=== PATIENT | female | born 1995 | race Caucasian/White ===

== ENCOUNTER 2017-08-23 02:40 | Emergency (ER) | payer BC ==
[~2017-08-23] VITALS: Ht 180.3 cm; Wt 85.0 kg
[2017-08-23 02:58] VITALS: BP 136/68; PULSE 68; RESP 18; TEMP 97.8; O2SAT 99
[2017-08-23] MEDS ORDERED: ONDANSETRON HCL 4 MG/2 ML VIAL IV ONE (03:30)
[2017-08-23] MEDS ORDERED: SODIUM CHLOR 0.9% 1000 ML INJ 1,000 ML IV ONE ×2 (03:30→04:30)
--- NOTE | 2017-08-23 03:37 | PD ---
HPI Chief Complaint: Alcohol/Drug Intoxication Time Seen by Provider: 03:20 Travel History International Travel<30 days: No Contact w/Intl Traveler<30days: No Traveled to known affect area: No History of Present Illness HPI The patient is a 22 year old female who presents to the [facility] emergency department with a history of nausea that began at midnight. The patient reports that she last ate a meal at lunchtime. She reports that she has been drinking alcohol this evening since approximately 6 PM. She reports that in total she drank 2 mixed drinks and 3-6 shots of vodka. She reports feeling weak, thirsty, and having a dry mouth. She reports that her boyfriend was recently sick with a diarrheal illness. She reports that she has had vomiting too many times to count and diarrhea approximately 3 times. She reports that the stool is dark brown. The patient reports having midepigastric abdominal discomfort associated with this. She denies having any recent fevers or chills, cough or congestion, neck pain, chest pain, shortness of breath, urinary symptoms, or other neurologic symptoms. LMP: Started today. She is on an oral contraceptive [facility] Past Medical History Narrative Medical The patient's past medical history is reportedly significant for mild asthma Asthma: Yes Immunizations Current: Yes Tetanus Vaccination: Unknown Influenza Vaccination: No ?: Unknown LMP: 08/23/17 Past Surgical History Narrative Surgical The patient's past surgical history is reportedly none. Social History Alcohol Use: Yes Tobacco Use: No Substance Use: No Allergies-Medications (Allergen,Severity, Reaction): Coded Allergies: ibuprofen (Verified Allergy, Severe, hives, 08/23/17) Narrative Medication Oral contraceptive Review of Systems Except as stated in HPI: all other systems reviewed are Neg General / Constitutional: No: Fever Eyes: No: Visual changes HENT: No: Headaches Cardiovascular: No: Chest Pain or Discomfort Respiratory: No: Shortness of Breath Gastrointestinal: Positive: Nausea, Vomiting, Diarrhea, Abdominal Pain, Changes in Bowel Habits, No: Indigestion, Loss of Appetite Genitourinary: No: Dysuria Musculoskeletal: No: Myalgias, Pain Skin: No Rash Neurologic: Positive: Weakness (Generalized weakness), No: Focal Abnormalities , Change in Mentation, Slurred Speech, Sensory Disturbance Psychiatric: No: Depression Endocrine: No: Polydipsia Hematologic/Lymphatic: No: Easy Bruising Physical Exam Narrative General: The patient is well-developed well-nourished female in no acute distress. Head and Neck exam: Head is normocephalic atraumatic. Eyes: EOMI, pupils are equal round and reactive to light. Nose: Midline septum with pink mucous membranes Mouth: Dentition unremarkable. Moist mucus membranes. Posterior oropharynx is not erythematous. No tonsillar hypertrophy. Uvula midline. Airway patent. Neck: No palpable lymphadenopathy. No nuchal rigidity. No thyromegaly. Cardiovascular: Regular rate and rhythm without murmurs, gallops, or rubs. Lungs: Clear to auscultation bilaterally. No wheezes, rhonchi, or rales. Abdomen: Soft, without tenderness to palpation in all 4 quadrants of the abdomen. No guarding, rebound, or rigidity. Normal bowel sounds are audible. No tenderness on palpation of McBurney's point. Negative Sutton sign. Extremities: No clubbing, cyanosis, or edema. 2+ pulses in all 4 extremities. No calf tenderness on palpation Back: No costovertebral angle tenderness to palpation. Neurologic Exam: Grossly nonfocal. Skin Exam: No rash noted. Intact skin that is warm and dry. Data Data Last Documented VS Vital Signs Date Time Temp Pulse Resp B/P (MAP) Pulse Ox O2 Delivery O2 Flow Rate FiO2 08/23/17 03:38 16 08/23/17 02:58 97.8 68 99 Room Air Orders Orders Complete Blood Count With Diff (08/23/17 03:20) Comprehensive Metabolic Panel (08/23/17 03:20) C-Reactive Protein (Crp) (08/23/17 03:20) Lipase (08/23/17 03:20) Urinalysis - C+S If Indicated (08/23/17 03:20) Magnesium (Mg) (08/23/17 03:20) Thyroid Stimulating Hormone (08/23/17 03:20) Chest, Single Ap (08/23/17 03:20) Iv Access Insert/Monitor (08/23/17 03:20) Ecg Monitoring (08/23/17 03:20) Oximetry (08/23/17 03:20) Ed Urine Pregnancytest Poc (08/23/17 03:20) Drug Screen, Random Urine (08/23/17 03:20) Alcohol (Ethanol) (3/5/18 03:20) Salicylates (Aspirin) (08/23/17 03:20) Tylenol (Acetaminophen) (08/23/17 03:20) Sodium Chlor 0.9% 1000 Ml Inj (Ns 1000 M (08/23/17 03:30) Ondansetron Inj (Zofran Inj) (08/23/17 03:30) Sodium Chlor 0.9% 1000 Ml Inj (Ns 1000 M (08/23/17 04:30) Ondansetron Inj (Zofran Inj) (08/23/17 04:30) Oral Rehydration (08/23/17 04:47) Prochlorperazine Inj (Compazine Inj) (08/23/17 05:30) Labs Laboratory Tests Test 08/23/17 03:30 08/23/17 04:55 White Blood Count 6.2 TH/MM3 Red Blood Count 4.95 MIL/MM3 Hemoglobin 14.3 GM/DL Hematocrit 43.0 % Mean Corpuscular Volume 86.8 FL Mean Corpuscular Hemoglobin 28.9 PG Mean Corpuscular Hemoglobin Concent 33.3 % Red Cell Distribution Width 12.8 % Platelet Count 222 TH/MM3 Mean Platelet Volume 9.1 FL Neutrophils (%) (Auto) 68.2 % Lymphocytes (%) (Auto) 23.5 % Monocytes (%) (Auto) 5.6 % Eosinophils (%) (Auto) 2.0 % Basophils (%) (Auto) 0.7 % Neutrophils # (Auto) 4.2 TH/MM3 Lymphocytes # (Auto) 1.5 TH/MM3 Monocytes # (Auto) 0.3 TH/MM3 Eosinophils # (Auto) 0.1 TH/MM3 Basophils # (Auto) 0.0 TH/MM3 CBC Comment DIFF FINAL Differential Comment Blood Urea Nitrogen 10 MG/DL Creatinine 0.76 MG/DL Random Glucose 101 MG/DL Total Protein 7.8 GM/DL Albumin 3.8 GM/DL Calcium Level 8.4 MG/DL Magnesium Level 1.9 MG/DL Alkaline Phosphatase 58 U/L Aspartate Amino Transf (AST/SGOT) 16 U/L Alanine Aminotransferase (ALT/SGPT) 17 U/L Total Bilirubin 0.3 MG/DL Sodium Level 143 MEQ/L Potassium Level 4.0 MEQ/L Chloride Level 110 MEQ/L Carbon Dioxide Level 26.5 MEQ/L Anion Gap 7 MEQ/L Estimat Glomerular Filtration Rate 95 ML/MIN C-Reactive Protein 0.41 MG/DL Lipase 102 U/L Thyroid Stimulating Hormone 3rd Gen 5.940 uIU/ML Salicylates Level LESS THAN 1.7 MG/DL Acetaminophen Level LESS THAN 2.0 MCG/ML Ethyl Alcohol Level 47 MG/DL Urine Color YELLOW Urine Turbidity CLEAR Urine pH 8.0 Urine Specific Otto 1.021 Urine Protein 30 mg/dL Urine Glucose (UA) NEG mg/dL Urine Ketones NEG mg/dL Urine Occult Blood NEG Urine Nitrite NEG Urine Bilirubin NEG Urine Urobilinogen LESS THAN 2.0 MG/DL Urine Leukocyte Esterase NEG Urine WBC 1 /hpf Urine Squamous Epithelial Cells 1 /hpf Urine Bacteria RARE /hpf Microscopic Urinalysis Comment CULT NOT INDICATED Urine Opiates Screen NEG Urine Barbiturates Screen NEG Urine Amphetamines Screen NEG Urine Benzodiazepines Screen NEG Urine Cocaine Screen NEG Urine Cannabinoids Screen POS MDM Medical Decision Making Medical Screen Exam Complete: Yes Emergency Medical Condition: Yes Medical Record Reviewed: Yes Differential Diagnosis Viral versus bacterial gastroenteritis, versus alcohol related ketoacidosis, versus alcohol intoxication, versus pancreatitis Narrative Course During the course of the patient's emergency department visit, the patient's history, examination, and differential diagnosis were reviewed with the patient. The patient was placed on a press service reader with oximetry and frequent blood pressure monitoring. The patient had IV access obtained and blood work sent for analysis. The patient's bedside test is negative. The patient was initially provided normal saline 1 L IV fluid bolus which was repeated 1, Zofran 4 mg IV for nausea which reportedly improved her symptoms, however she reported mild continued nausea and Zofran 4 mg IV was administered again 1. The patient's laboratory studies were reviewed and remarkable for a CBC that is within normal limit, CMP is remarkable for a chloride of 110, calcium 8.4, C- reactive protein 0.41, lipase 102, TSH elevated at 5.94, urine drug screen is positive for cannabinoids, alcohol level 47, acetaminophen less than 2, salicylate less than 1.7, urinalysis unremarkable. The patient had another episode of vomiting was given Compazine 5 mg IV. The patient will be discharged from the emergency department in stable condition and sent home with directions to avoid alcohol. The patient was instructed to push fluids with electrolyte rich solution such as Pedialyte or Gatorade. The patient is given a prescription for Zofran at discharge. Regarding the patient's elevated TSH the patient is given a copy of her lab results to discuss further with her primary care physician when she returns back home from vacation. The patient is resting comfortably and feels better, is alert and in no distress. The patient's results and examination findings were discussed with the patient. The repeat examination is unremarkable and benign. The history, exam, diagnostic testing, and current condition do not suggest any significant pathology to warrant further testing, continued ED treatment, admission, or surgical evaluation at this point. The vital signs have been stable. The patient does not have uncontrollable pain, intractable vomiting, or other significant symptoms. The patient's condition is stable and appropriate for discharge. The patient will pursue further outpatient evaluation with a primary care physician or other designated or consulting physician as indicated in the discharge instructions. The patient expressed understanding and was agreeable with this plan. Diagnosis Primary Impression: Nausea, vomiting, and diarrhea Additional Impression: Elevated TSH Referrals: Primary Care Physician Patient Instructions: Acute Diarrhea (ED), Acute Nausea and Vomiting (ED), General Instructions Additional Instructions: A copy of the patient's labs were provided to the patient including her elevated TSH level which she will follow-up with her primary care physician regarding when she returns back home. Med/Other Pt SpecificInfo: Prescription(s) given Scripts Ondansetron Odt (Zofran Odt) 4 Mg Tab 4 MG SL Q6HR Y for Nausea/Vomiting, #7 TAB 0 Refills Prov: Lata Kincaid MD 08/23/17 Disposition: DISCHARGE HOME Condition: Stable Lata Kincaid MD Aug 23, 2017 03:37
[2017-08-23 03:38] VITALS: RESP 16
[2017-08-23 03:43] LABS: AUTOMATED NEUTROPHIL # 4.2 TH/MM3 (1.8-7.7); BASOPHIL % 0.7 % (0.0-2.0); EOSINOPHIL # 0.1 TH/MM3 (0-0.4); HEMOGLOBIN 14.3 GM/DL (11.6-15.3); LYMPH % 23.5 % (9.0-44.0); LYMPHOCYTE # 1.5 TH/MM3 (1.0-4.8); MEAN CELL VOLUME 86.8 FL (80.0-100.0); MEAN CORPUSCULAR HEMOGLOBIN 28.9 PG (27.0-34.0); MEAN CORPUSCULAR HGB CONC 33.3 % (32.0-36.0); MEAN PLATELET VOLUME 9.1 FL (7.0-11.0); MONO % 5.6 % (0.0-8.0); MONOCYTE # 0.3 TH/MM3 (0-0.9); NEUT % 68.2 % (16.0-70.0); PLATELET COUNT 222 TH/MM3 (150-450); RED BLOOD COUNT 4.95 MIL/MM3 (4.00-5.30); RED CELL DISTRIBUTION WIDTH 12.8 % (11.6-17.2); WHITE BLOOD COUNT 6.2 TH/MM3 (4.0-11.0)
[2017-08-23 03:56] LABS: ALBUMIN 3.8 GM/DL (3.4-5.0); ALT (GPT) 17 U/L (10-53); AST (GOT) 16 U/L (15-37); BICARBONATE 26.5 MEQ/L (21.0-32.0); BLOOD UREA NITROGEN 10 MG/DL (7-18); C-REACTIVE PROTEIN 0.41 MG/DL (0.00-0.30); CALCIUM 8.4 MG/DL (8.5-10.1); CHLORIDE 110 MEQ/L (98-107); CREATININE 0.76 MG/DL (0.50-1.00); GLOMERULAR FILTRATION RATE 95 ML/MIN (>89); GLUCOSE,RANDOM 101 MG/DL (74-106); MAGNESIUM 1.9 MG/DL (1.5-2.5); SODIUM (NA) 143 MEQ/L (136-145)
[2017-08-23 04:05] LABS: ALKALINE PHOSPHATASE 58 U/L (45-117); TOTAL BILIRUBIN ADULT 0.3 MG/DL (0.2-1.0); TOTAL PROTEIN 7.8 GM/DL (6.4-8.2)
[2017-08-23 04:15] LABS: ACETAMINOPHEN LESS THAN 2.0 MCG/ML (10.0-30.0)
--- NOTE | 2017-08-23 04:18 | RADRPT ---
EXAM DATE/TIME: 08/23/2017 03:36 [place] COMPARISON: No previous studies available for comparison. INDICATIONS : Short of breath, chest pains. MEDICAL HISTORY : None. SURGICAL HISTORY : None. ENCOUNTER: Initial ACUITY: 1 day PAIN SCORE: 4/10 LOCATION: Bilateral chest FINDINGS: Portable AP view of the chest demonstrates a normal-sized cardiac silhouette. No effusion, consolidat ion, or pneumothorax is visualized. The bones and soft tissues demonstrate no acute abnormality. Nipp le piercing hardware is present. CONCLUSION: No acute cardiopulmonary abnormality is identified. Govind Tucker MD on August 23, 2017 at 4:15 Board Certified Radiologist. This report was verified electronically.
[2017-08-23] MEDS ORDERED: ONDANSETRON HCL 4 MG/2 ML VIAL IV PUSH ONE (04:30)
[2017-08-23 05:10] LABS: BACTERIA, URINE RARE /hpf; BILIRUBIN, URINE NEG (NEG); BLOOD, URINE NEG (NEG); GLUCOSE,URINE NEG (NEG); KETONE, URINE NEG (NEG); NITRITE,URINE NEG (NEG); SQUAMOUS EPITHELIAL CELL URINE 1 /hpf (0-5); URINE COLOR YELLOW (YELLW/STRAW); URINE LEUKOCYTE ESTERASE NEG (NEG)
[2017-08-23] MEDS ORDERED: PROCHLORPERAZINE INJ 10 MG/2 ML VIAL IV PUSH ONE (05:30)
[2017-08-23] MEDS ORDERED: ZOFR4TAB3 SL (05:34)
== END 2017-08-23 05:59 | disposition home or self-care (01) ==
LOC: NEPC 02:40
DX: R11.2 Nausea with vomiting, unspecified (principal); R19.7 Diarrhea, unspecified; R94.6 Abnormal results of thyroid function studies; R53.1 Weakness; R68.2 Dry mouth, unspecified; J45.909 Unspecified asthma, uncomplicated
CPT/HCPCS: 71045; 80053; 80307; 81001; 83690; 83735; 84443; 84703; 85025; 86140; 96361; 96374; 96375; 96376; 99284; J0780; J2405; J7030